=== PATIENT | female | born 1945 | race Two or more races ===

== ENCOUNTER 2023-05-27 14:08 | Emergency (ER) | payer OTHER ==
[2023-05-27 14:20] VITALS: TEMP 98; BMI 25.0
[2023-05-27 16:00] LABS: BASO % 0.5 % (0-2.0); EOS % 0.6 % (0-4.5); HEMATOCRIT 43.4 % (32.4-45.2); HEMOGLOBIN 14.2 GM/dL (10.7-15.3); LYMPH % 37.6 % (8-40); MCH 27.6 pg (25.7-33.7); MCHC 32.6 g/dl (32.0-36.0); MEAN CELL VOLUME 84.7 fl (80-96); MONO % 10.2 % (3.8-10.2); NEUT % 51.1 % (42.8-82.8); PLATELET COUNT 174 10^3/uL (134-434); RBC 5.13 M/mm3 (3.60-5.2); RDW 15.3 % (11.6-15.6); WHITE BLOOD COUNT 5.8 K/mm3 (4.0-10.0)
[2023-05-27 16:09] LABS: INR 0.95 (0.83-1.09)
[2023-05-27 16:11] LABS: ACTIVATED PTT 31.9 SECONDS (25.2-36.5)
[2023-05-27 16:29] LABS: POTASSIUM 4.4 mmol/L (3.5-5.1)
[2023-05-27 16:31] LABS: ALBUMIN 3.7 g/dl (3.4-5.0); CALCIUM 9.7 mg/dL (8.5-10.1)
[2023-05-27 16:32] LABS: BLOOD UREA NITROGEN 11.1 mg/dL (7-18); MAGNESIUM 2.1 mg/dL (1.8-2.4)
[2023-05-27 16:35] LABS: CREATININE 0.9 mg/dL (0.55-1.3)
[2023-05-27 16:36] LABS: BILIRUBIN,TOTAL 0.5 mg/dL (0.2-1); TOT PROT 7.8 g/dl (6.4-8.2)
[2023-05-27 17:14] VITALS: BP 149/69; PULSE 61; RESP 18
== END 2023-05-27 17:29 | disposition home or self-care (01) ==
LOC: JER 14:08
DX: I10 Essential (primary) hypertension (principal); R42 Dizziness and giddiness; Z20.822 Contact with and (suspected) exposure to COVID-19
CPT/HCPCS: 0241U-QW; 36415; 70450-TC; 71045-TC-FY; 80053; 83735; 84443; 84484; 85025; 85610; 85730; 86850; 86900; 86901; 93005; 93010; 99285-25

== ENCOUNTER 2023-06-17 04:34 | Day surgery (SDC) | payer OTHER ==
[2023-06-15 10:37] VITALS: BMI 25.9
[2023-06-17 09:05] VITALS: TEMP 98
[2023-06-17 10:04] VITALS: PULSE 60
[2023-06-17 10:06] VITALS: BP 103/45; RESP 18
== END 2023-06-17 09:50 | disposition home or self-care (01) ==
LOC: JASU-ENDO 04:34
PROVIDERS: ATTEND Student in an Organized Health Care Education/Training Program
PROC: 0DBL8ZX Excision of Transverse Colon, Via Natural or Artificial Opening Endoscopic, Diagnostic (ICD-10-PCS; 2023-06-17)
PROC: 0DBK8ZX Excision of Ascending Colon, Via Natural or Artificial Opening Endoscopic, Diagnostic (ICD-10-PCS; principal; 2023-06-17 08:30)
DX: Z12.11 Encounter for screening for malignant neoplasm of colon (principal); D12.2 Benign neoplasm of ascending colon; D12.3 Benign neoplasm of transverse colon; K57.30 Diverticulosis of large intestine without perforation or abscess without bleeding; I10 Essential (primary) hypertension
CPT/HCPCS: 88305-TC